=== PATIENT | female | born 1980 | race Caucasian/White ===

== ENCOUNTER 2016-04-15 19:57 | Emergency (ER) | payer BC, OTHER ==
[2016-04-15] MEDS ORDERED: HYDROmorphone HCL 1 MG/ML DISP.SYRIN IV ONE ×5 (20:12→22:58)
[2016-04-15] MEDS ORDERED: ONDANSETRON HCL/PF 2 MG/ML VIAL ONE ×2 (20:12→21:24)
[2016-04-15] MEDS ORDERED: HYDROmorphone HCL 1 MG/ML DISP.SYRIN ONE ×3 (20:12→22:57)
[2016-04-15] MEDS ORDERED: NORMAL SALINE 1,000 ML IV ONE (20:12)
[2016-04-15] MEDS ORDERED: ONDANSETRON HCL/PF 2 MG/ML VIAL IV ONE ×2 (20:12→21:25)
[2016-04-15 20:28] LABS: Hematocrit 41.2 % (37.0-47.0); Hemoglobin 14.1 gm/dL (12.5-16.0); Mean Corpuscular Hemoglobin 30.1 pg (27-31); Mean Corpuscular Hgb Conc 34.2 g/dl (32-36); Mean Platelet Volume 9.3 fl (6.0-9.5); Neutrophil # 3.4 K/mm3 (1.3-6.0); Neutrophil % 52.1 % (42-75.0); Platelet Count 278 K/mm3 (150-450); Red Blood Count 4.68 M/mm3 (4.2-5.4); Red Cell Distribution Width 12.3 % (11.5-14.0); White Blood Count 6.6 K/mm3 (4.0-10.5)
--- NOTE | 2016-04-15 20:34 | ERNOTE ---
Abdominal HPI - Narrative Date of Service: 04/15/16 - General Chief Complaint: Abdominal Pain Time Seen by Provider: 04/15/16 20:08 Source: patient - Immun/Allergies/Home Medications Immunizatons: IMMUNIZATION HX Immunizations Up to Date Yes History of Influenza Vaccine Yes Hx Pneumococcal Vaccination Yes Allergies/Adverse Reactions: Allergies No Known Allergies Allergy (Unverified 12/07/13 21:30) Home Medications: HOME MEDICATIONS Insulin Lispro [Humalog] unit SQ 12/07/13 [Last Taken Unknown] Levothyroxine Sodium [Synthroid] 250 mcg PO DAILY 12/07/13 [Last Taken Unknown] Medroxyprogesterone Acetate [Depo-Provera Contraceptive] 150 mg IM 12/07/13 [ Last Taken Unknown] Metoclopramide HCl [Reglan] 10 mg PO QID 12/07/13 [Last Taken Unknown] Simethicone [Mylicon Drops] 80 mg PO QID PRN 12/07/13 [Last Taken Unknown] - History of Present Illness Narrative: Patient is a type I diabetic with had severe generalized abdominal pain since 1300 today. Pt has also had nausea since the same time. She reports "not feeling well" since last pm. She denies diarrhea but admits to vomiting. she took Reglan. She has a history of Gastroparesis and has had multiple belly surgeries. She denies fevers or chills Review of Systems - Review of Systems Constitutional: Present: See HPI EYE: Present: no symptoms reported ENT: Present: no symptoms reported Respiratory: Present: no symptoms reported Cardiology: Present: no symptoms reported Gastrointestinal/Abdominal: Present: See HPI Genitourinary: Present: no symptoms reported Neurological: Present: no symptoms reported - Patient's Past Medical History Patient History - Medical: Diabetes Type 2 Insulin Dependent, Hypothyroidism Patient History - Cardiac/Respiratory: Asthma Patient History - Cancer: No Hx of Cancer Patient History - Surgical Procedures: T & A Patient History - Other: None - Social History Living Situations: home Abuse History: No History of abuse Psych History: No pertinent hx Smoking Status: Never smoker Have you smoked in the past 12 months: No Do you dip or chew tobacco: No Alcohol Use: none Drug Use: none - Immunizations Immunizations Up to Date: Yes Hx Pneumococcal Vaccination: Yes History of Influenza Vaccine: Yes Physical Exam - Physical Exam General Appearance: Present: wd/wn, alert, no apparent distress, other - pt appears tired. Ears, Nose, Throat: Present: normal ENT inspection Neck: Present: normal inspection, nontender, supple Respiratory: Present: no respiratory distress, normal breath sounds, no accessory muscle use, chest nontender Cardiovascular/Chest: Present: regular rate, rhythm, no murmur, normal peripheral pulses Gastrointestinal/Abdominal: Present: normal bowel sounds, soft, other - diffuse abd tenderness all over but NOT an acute abdomen Extremity Exam: Present: normal inspection, non-tender Neurological Exam: Present: alert, oriented, normal mood/affect, no motor/ sensory deficits Skin Exam: Present: normal color, warm/dry ED Progress - Results and Orders Patient's Lab Results:: I have reviewed the patient's lab results. - Vital Signs Patient's Vital Signs:: I have reviewed the patient's vital signs. Vital Signs: Vital Signs 04/15/16 20:00 Temperature 37 C Pulse Rate 96 Respiratory 22 H Rate Blood Pressure 169/85 O2 Sat by Pulse 96 Oximetry - Progress/Reassessment Chief Complaint: Abdominal Pain Plan - Plan Plan: Patient's CT of abd and pelvis reveals findings consistent with SBO. Dr. Hirsch, our surgeon was consulted regarding this case and he graciously agreed to come in and see and evaluate the patient. An NG tube was inserted to intermittent suction. After Dr. Mills's consult it was decided by the patient AND Dr. Mills that it would be in the patient's best interest to be transferred to the facility at which she had her multiple abdominal surgeries in [facility] Departure - Departure Clinical Impression: Small bowel obstruction Disposition: Other health care facility Condition: Good Referrals: Clarissa Rowley ARNP [Primary Care Provider] -
[2016-04-15] MEDS ORDERED: FAMOTIDINE 10 MG/ML VIAL IV ONE ×2 (20:39)
[2016-04-15 20:44] LABS: Albumin * 3.8 gm/dl (3.4-5.0); Anion Gap 10.4 mmol/L (6.8-13.8); BUN/Creatinine Ratio 12.7 (9.0-21.6); Bilirubin, Total 1.3 mg/dL (0.0-1.1); Ca. Corrected For Albumin 9.1 mg/dL (8.4-10.2); Calcium * 9.3 mg/dL (7.9-10.9); Carbon Dioxide 28.2 mmol/L (24-32.6); Potassium 3.6 mmol/L (3.4-4.6)
[2016-04-15] MEDS ORDERED: DIATRIZOATE MEGLU/DIATRIZO SOD 30 ML BTL ONE (20:46)
[2016-04-15] MEDS ORDERED: DIATRIZOATE MEGLU/DIATRIZO SOD 30 ML BTL PO ONE (20:47)
--- OUTSIDE RECORDS SUMMARY | 2016-04-15 20:57 | XMS REPORT | Continuity of Care Document ---
:1980 Author Organization [facility] ([facility]) Address [address] [place] [address] Phone [phone] Care Team Providers Name Role Phone [facility] Provider [phone] Source Comments This disclosure is being made pursuant to the Care Everywhere program, applicable federal and state laws, and may not contain all informaitonavailable regarding this patient.[facility] ([facility]) Active Allergies and Adverse Reactions No Known Allergies Current Medications Prescription Sig. Disp. Refills Start End Date Status Date levothyroxine Take 250 mcg by Active (SYNTHROID) 200 mcg mouth daily. tablet metoclopramide (REGLAN) take 10 mg by mouth Active 10 mg tablet 4 times daily. MULTIVITAMINS take 1 Tab by mouth Active (MULTI-VITAMIN PO) daily. PROchlorPERAZINE take 10 mg by mouth Active (COMPAZINE) 10 mg tablet as needed. Cyclobenzaprine 15 mg take 15 mg by mouth Active Cp24 2 times daily as needed. fluticasone (FLONASE) 50 use 2 Sprays into 1 Bottle 11 Active mcg/Actuation nasal each nostril daily. 0 spray Indications: Chronic Non-Allergic Rhinitis albuterol (VENTOLIN HFA) Use 2 Puffs by 1 Inhaler 3 Active 90 mcg/Actuation inhaler inhalation every 6 0 hours as needed. Indications: Bronchospastic Pulmonary Disease CHOLECALCIFEROL, VITAMIN Take by mouth Active D3, (VITAMIN D3 PO) daily. nystatin-triamcinolone Apply topically BID 30 g 2 Active 100,000-0.1 unit/gram-% as needed 3 ointment Indications: CUTANEOUS CANDIDIASIS insulin aspart (NovoLOG) Inject Active 100 unit/mL injection subcutaneously 3 vial times daily before meals. medroxyPROGESTERone Inject 1 mL (150 mg 1 Syringe 4 Active (DEPO-PROVERA) 150 mg/mL total) 6 injection syringe intramuscularly once. 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 Co-testing due Other constipation 05/02/2007 Dysplasia of cervix, unspecified 03/23/2007 Routine gynecological examination 10/13/2006 Abnormal glandular Papanicolaou smear of cervix 07/28/2006 Overview: [facility] 2003 STACY III Type I (juvenile type) diabetes mellitus without mention of complication, not stated as uncontrolled Most Recent Encounters Date Type Specialty Providers Description 03/23/2016 Office Visit [facility] Yanci Vega ARNP Dx: Breast density (Primary Dx) 03/15/2016 Office Visit [facility] Yanci Vega ARNP Subj: Upcoming Appt Reminder 03/09/2016 Office Visit [facility] Yanci Vega ARNP Chief Comp: Patient Reported Reason For Visit Immunizations Name Dates Previously Given Next Due Hepatitis A, unspecified 04/29/2005 Influenza 12/17/2004,12/07/2001 Influenza, quadrivalent PF 11/26/2014,11/17/2013 Influenza, unspecified 10/24/2015,12/07/2008 MMR 02/28/1996 Novel Inluenza H1N1, unspecified 12/07/2008 Pneumococcal, unspecified 02/06/2005 Social History Tobacco Use Types Packs/Day Years Used Date Former Smoker Cigarettes 2.5 15 Smokeless Tobacco: Never Used Tobacco Cessation:Counseling Given: Yes Comments: Alcohol Use Drinks/Week oz/Week Comments Yes 4 Glasses of wine Last Filed Vital Signs Vital Sign Reading Time Taken Blood Pressure 138/79 03/23/2016 1:48 PM [facility] Pulse 86 03/23/2016 1:48 PM [facility] Temperature 36.6 C (97.9 F) 03/23/2016 1:48 PM [facility] Respiratory Rate 18 12/03/2015 9:53 AM CDT Height 1.88 m (6' 2") 03/23/2016 1:48 PM [facility] Weight 136.2 kg (300 lb 4.3 oz) 03/23/2016 1:48 PM [facility] Body Mass Index 38.54 03/23/2016 1:48 PM [facility] Oxygen Saturation - - Plan of Care Date Type Specialty Providers Description 11/07/2016 Appointment Gynecology [place], Rome Anderson MD [address] [place] [address] [phone] (Fax) Chief Comp: Patient Chiqui Dwyer DANYA Bardales [address] [place] [address] [phone] (Fax) Reported Reason For Visit Health Maintenance Due Date Last Done Comments Hepatitis B Vaccine ( - 1980 Primary Series) Tdap Vaccine 1989 Td Vaccine 01/19/1996 Pneumococcal Vaccine (1997 - PPSV23) DIABETIC: Microalbumin 02/12/2004 02/11/2003 DIABETIC: Cholesterol 03/14/2005 03/14/2004, 02/11/2003 Diabetic: Hdl 03/14/2005 03/14/2004, 02/11/2003 Diabetic: Ldl 03/14/2005 03/14/2004, 03/14/2004, 02/11/2003 DIABETIC: Triglycerides 03/14/2005 03/14/2004, 02/11/2003 DIABETIC: Hemoglobin A1C 11/08/2007 05/09/2007, Additional history exists 09/16/2003, 06/22/2003 DIABETIC: Foot Exam 07/20/2010 DIABETIC: Retinal Eye Exam 07/20/2010 Cervical Cancer Screening 10/25/2018 10/26/2015, Additional history exists 03/14/2011, 11/26/2009 MMR Vaccine Completed 02/28/1996 Influenza Vaccine: Seasonal Completed 10/24/2015, Additional history exists 11/26/2014, 11/17/2013 Results from Last 3 Months Not on file
--- OUTSIDE RECORDS SUMMARY | 2016-04-15 20:57 | XMS REPORT | Continuity of Care Document ---
:1980 Author Organization [facility] [employer] [place] [address] Care Team Providers Name Role Phone Kemi Bird Yumiko Primary Care Provider [phone] Source Comments This disclosure is being made pursuant to the [place] program and maynot contain all information available regarding this patient.[employer] Active Allergies and Adverse Reactions No Known Allergies Current Medications Be aware that medications may not be up to date as of this document. Alwaysverify current medications with the patient. Prescription Sig. Disp. Refills Start Date End Date Status albuterol (PROAIR HFA) 108 Inhale into 05/20/2014 Active (90 BASE) MCG/ACT inhaler the lungs. levothyroxine (SYNTHROID, Take 200 mcg 05/08/2013 Active LEVOTHROID) 200 MCG tablet by mouth. Insulin Pump Accessories Take by 05/08/2013 Active MISC mouth. Multiple Vitamins-Minerals Take by 05/08/2013 Active (PX MENS MULTIVITAMINS) mouth. TABS prochlorperazine Take 10 mg by 05/08/2013 Active (COMPAZINE) 10 MG tablet mouth. insulin lispro (HUMALOG) INJECT 80-90 07/23/2014 Active 100 UNIT/ML injection - UNIIS INTO THE vial SKIN DAILY THROUGH INSULIN PUMP DIRECTED Insulin Disposable Pump Change 09/22/2011 Active (OMNIPOD) MISC Omnipods every 3 days. metoclopramide (REGLAN) 10 Take 10 mg by 09/30/2014 Active MG tablet mouth. glucagon (GLUCAGON 1 mg. 09/30/2014 Active EMERGENCY) 1 MG injection vitamin D, Take by Active cholecalciferol, mouth. (CHOLECALCIFEROL) 400 UNITS tablet glucose blood (FREESTYLE TEST 8 TIMES 09/30/2014 Active TEST STRIPS) test strip DAILY ondansetron (ZOFRAN-ODT) 4 Take 1 tablet 15 tablet 0 03/29/2015 Active MG disintegrating tablet by mouth every 8 (eight) hours as needed for Nausea. glucose blood test strip TEST 8 TIMES 03/11/2015 Active DAILY levothyroxine (SYNTHROID, Take 50 mcg by Active LEVOTHROID) 50 MCG tablet mouth every morning. medroxyPROGESTERone Inject 150 mg Active (DEPO-PROVERA) 150 MG/ML into the injection muscle every 3 (three) months. citalopram (CELEXA) 20 MG TAKE ONE 30 tablet 0 09/01/2015 Active tablet TABLET BY MOUTH EVERY DAY citalopram (CELEXA) 20 MG TAKE ONE 30 tablet 0 09/21/2015 Active tablet TABLET BY MOUTH EVERY DAY Hospital, Clinic, or Other Ordered Dose Route Frequency Start Date End Date Status Facility Administered Medication medroxyPROGESTERone 150mg IM Q90 Days 08/01/2015 01/22/2017 Active (DEPO-PROVERA) injection Active Problems Problem Noted Date Adjustment disorder with depressed mood 06/01/2015 Type I (juvenile type) diabetes mellitus without mention of complication, uncontrolled Overview: Overview: Celiac disease 11/12/2013 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 Excessive or frequent menstruation 10/16/2013 Overview: Identified By: Kemi Bird Body mass index (BMI) of 36.0-36.9 in adult 07/13/2013 Personal history of hyperthyroidism 07/13/2013 RLS (restless legs syndrome) 07/13/2013 Gastroparesis 05/17/2010 Overview: Overview: Depressive disorder 07/27/2007 Overview: Overview: Postablative hypothyroidism 03/19/2004 Overview: Overview: Hyperlipidemia 05/08/2000 Overview: Overview: Resolved Problems Problem Noted Date Resolved Date Contraceptive management 10/16/2013 06/01/2015 Overview: Identified By: Kemi Bird Type 1 diabetes mellitus without complication (HCC) 07/13/2013 06/01/2015 Hypothyroidism 05/08/2013 06/01/2015 Overview: MIREILLE BOJORQUEZ MGT Identified By: Kemi Bird Type I diabetes mellitus (HCC) 05/08/2013 06/01/2015 Overview: Mireille BOJORQUEZ managing Identified By: Kemi Bird Most Recent Encounters Date Type Specialty Providers Description 01/21/2016 Data Import Immunizations Name Dates Previously Given Next Due INFLUENZA, INACTIVATED, QUADRIVALENT, 3 YEARS AND 11/26/2014 older, single dose syringe/vial Social History Tobacco Use Types Packs/Day Years Used Date Former Smoker Alcohol Use Drinks/Week oz/Week Comments Yes occassionally Last Filed Vital Signs Vital Sign Reading Time Taken Blood Pressure 105/74 06/01/2015 9:06 AM CDT Pulse 82 06/01/2015 9:06 AM CDT Temperature 36.9 C (98.5 F) 06/01/2015 9:06 AM CDT Respiratory Rate 16 06/01/2015 9:06 AM CDT Height 1.88 m (6' 2") 06/01/2015 9:06 AM CDT Weight 126.554 kg (279 lb) 06/01/2015 9:06 AM CDT Body Mass Index 35.81 06/01/2015 9:06 AM CDT Oxygen Saturation 98% 03/29/2015 5:00 PM [employer] [employer]PER[employer] Plan of Care Health Maintenance Due Date Last Done Comments Lab-Lipids 1980 LAB-HgA1C 1983 Eye (Ophthalmology) Exam 01/19/1988 Foot Exam 01/19/1988 Lab-Urine Microalbumin 01/19/1988 Pneumococcal Medium Risk 19-64 yo (1 of 1 - PPSV23) 1997 Tetanus/Pertussis (1 - Tdap) 1997 Pap Smear 1999 Influenza Immunization (#1) 2015 11/26/2014 Results from Last 3 Months Not on file
--- OUTSIDE RECORDS SUMMARY | 2016-04-15 20:57 | XMS REPORT | CCD ---
:1980 Author Name MEGGAN MOHAN Address [address] Unavailable [place], [place] [id number] Care Team Providers Name Role Phone LUPE THOMPSON MD Attending Physician Unavailable LUPE THOMPSON MD Er Physician 1 Unavailable Vital Signs Unknown or Not Available. Allergies Allergy Code Allergy Type Reaction Status No Known Drug Allergies 0 No known drug allergies Active Procedures Procedure Code Procedure Type Date C DIFF TOXIN PCR [id number] SNOMED CT 03/29/2015 COMP METABOLIC PANEL 256571017 SNOMED CT 03/29/2015 History of Immunizations Unknown or Not Available. Problems Unknown or Not Available. Results COMP METABOLIC PANEL - Collect Date/Time: 03/29/2015 10:08 Test Name Code Test Result Test Units Test Ref Range GLUCOSE 2345-7 315 mg/dL L=74 H=106 BUN 3094-0 16 mg/dL L=6 H=20 CREATININE 2160-0 1.0 mg/dL L=0.6 H=1.1 SODIUM 2951-2 138 mmol/L L=136 H=145 POTASSIUM 2823-3 4.2 mmol/l L=3.5 H=5.1 CHLORIDE 2075-0 103 mmol/L L=98 H=107 CO2 2028-9 21.0 mmol/L L=21.0 H=32.0 CALCIUM 80645-8 8.7 mg/dL L=8.5 H=10.1 TOTAL BILI 1975-2 1.40 mg/dL L=0.20 H=1.00 ALKALINE PHOS 6768-6 101 U/L L=46 H=116 AST(SGOT) 98948-6 22 U/L L=15 H=37 ALT(SGPT) 1743-4 18 U/L L=12 H=78 TOTAL PROTEIN 2885-2 6.5 g/dL L=6.4 H=8.2 ALBUMIN 37527-9 3.5 g/dL L=3.4 H=5.0 GLOBULIN 04582-0 3.0 L=2.6 H=3.8 A/G RATIO 1759-0 1.2 L=1.1 H=2.2 LACTIC ACID - Collect Date/Time: 03/29/2015 10:08 Test Name Code Test Result Test Units Test Ref Range LACTIC ACID 68213-3 0.90 mmol/L L=0.90 H=1.70 CBC PER PROTOCOL - Collect Date/Time: 03/29/2015 10:08 Test Name Code Test Result Test Units Test Ref Range WBC 6690-2 10.5 x10^3 L=3.5 H=10.5 RBC 789-8 5.1 x10^6 L=3.9 H=5.0 HEMOGLOBIN 718-7 15.8 g/dL L=12.0 H=15.5 HEMATOCRIT 4544-3 44.8 % L=34.9 H=44.5 MCV 787-2 87.3 fL L=81.6 H=98.3 MCH 785-6 30.8 pg L=25.0 H=35.0 MCHC 786-4 35.3 g/dL L=31.0 H=37.0 PLATELETS 777-3 269 x10^3 L=150 H=450 %NEUTROPHIL 770-8 90.5 % L=27.0 H=75.0 %LYMPHOCYTE 736-9 4.2 % L=26.0 H=54.0 %MONOCYTES 5905-5 4.2 % L=3.0 H=7.0 %EOSINOPHILS 713-8 1.0 % L=1.0 H=3.0 %BASOPHILS 706-2 0.1 % L=0.0 H=0.7 #NEUTROPHIL 751-8 9.5 x10^3 L=1.5 H=7.0 #LYMPHOCYTE 731-0 0.4 x10^3 L=1.0 H=3.7 #MONOCYTES 742-7 0.4 x10^3 #EOSINOPHILS 711-2 0.1 x10^3 #BASOPHILS 704-7 0.0 x10^3 SEGS 86 % L=60 H=75 BANDS 764-1 3 % L=0 H=5 LYMPHOCYTES 3 % L=20 H=51 MONO 7 % L=0 H=3 EOSINOPHILS 1 % L=0 H=4 MANUAL DIFF SEE BELOW N/A RBC MORPH NORMAL N/A PLT APPEAR NORMAL N/A C DIFF TOXIN PCR - Collect Date/Time: 03/29/2015 10:14 Test Name Code Test Result Test Units Test Ref Range C DIFF TOXIN PCR 21504-3 NEGATIVE N/A NORMAL: NEGATIVE Active Medications Unknown or Not Available. Medications Administered During Visit Unknown or Not Available. Encounters Encounter Diagnosis Diagnosis Code Start Date Nausea with vomiting, unspecified R112 03/29/2015 Social History Smoking Status Code Start Date End Date Never smoker [id number] Patient Decision Aids Unknown or Not Available. Discharge Instructions You were admitted to [facility] on 03/29/2015 with a principal diagnosis of Nausea with vomiting, unspecified. You were discharged from [facility] on 03/29/2015. Should you have any questions prior to discharge, please contact a member of your healthcare team. If you have left the hospital and have any questions, please contact your primary care physician. Chief Complaint and Reason For Visit Unknown or Not Available. Function Status Unknown or Not Available. Plan of Care Unknown or Not Available. Referral/Transition of Care Unknown or Not Available.
--- OUTSIDE RECORDS SUMMARY | 2016-04-15 20:57 | XMS REPORT | CCD ---
:1980 Author Name MEGHANN SUTTON Address [address] Unavailable [place], [place] [id number] Care Team Providers Name Role Phone FELIBERTO CAMPUZANO DO Attending Physician Unavailable FELIBERTO CAMPUZANO DO Er Physician 1 Unavailable Vital Signs Unknown or Not Available. Allergies Allergy Code Allergy Type Reaction Status No Known Drug Allergies 0 No known drug allergies Active Procedures Procedure Code Procedure Type Date URINE TEST [id number] SNOMED CT 07/11/2014 History of Immunizations Unknown or Not Available. Problems Unknown or Not Available. Results URINE TEST - Collect Date/Time: 07/11/2014 22:11 Test Name Code Test Result Test Units Test Ref Range PREG TEST 2106-3 NEGATIVE N/A NORMAL: NEGATIVE Active Medications Unknown or Not Available. Medications Administered During Visit Unknown or Not Available. Encounters Encounter Diagnosis Diagnosis Code Start Date FX METATARSAL-CLOSED 32565 07/11/2014 Social History Smoking Status Code Start Date End Date Never smoker [id number] Patient Decision Aids Unknown or Not Available. Discharge Instructions You were admitted to [facility] on 07/11/2014 with a principal diagnosis of FX METATARSAL-CLOSED. You were discharged from [facility] on 07/11/2014. Should you have any questions prior to [...]
--- OUTSIDE RECORDS SUMMARY | 2016-04-15 20:57 | XMS REPORT | Summary of Care ---
:1980 Author Organization [facility] Address [address] [place] [address] Care Team Providers Name Role Phone Clarissa Rowley Primary Care Physician Encounter Date(s): 03/28/16 - 03/28/16 [facility] [address] [place] [address] [facility] Discharge Diagnosis: Acute URI Discharge Disposition: Discharged to Home or Self Care Attending Physician: DANYA Loya Referring Physician: DANYA Loya Vital Signs Most recent to oldest [Reference Range]: 1 Temperature Oral [35.8-37.3 DegC] 36.9 DegC (03/28/16 2:50 PM) Peripheral Pulse Rate [60-100 bpm] 98 bpm (03/28/16 2:50 PM) Respiratory Rate [12-20 br/min] 12 br/min (03/28/16 2:50 PM) SpO2 [90-100 %] 98 % (03/28/16 2:50 PM) SpO2 Location Left hand (03/28/16 2:50 PM) Blood Pressure [90-130/60-90 mmHg] 120/80mmHg (03/28/16 2:50 PM) Mean Arterial Pressure, Cuff 93 mmHg (03/28/16 2:50 PM) Most recent to oldest [Reference Range]: 1 Height/Length Measured 188 cm (03/28/16 2:50 PM) Weight Dosing 136.50 kg1 (03/28/16 2:52 PM) Weight Measured 136.5 kg (03/28/16 2:50 PM) BSA Measured 2.59 m2 (03/28/16 2:50 PM) Body Mass Index Measured 38.62 kg/m2 (03/28/16 2:50 PM) 1Result Comment: This result was because the dosing weight was either not entered or it is>30 days old. This result is based off: Weight Measured March 28, 2016 14:50:00 CHEMICAL TESTER by Lesley Rodriguez LPN Problem List No data available for this section Allergies, Adverse Reactions, Alerts No Known Medication Allergies Medications albuterol 90 mcg/inh inhalation aerosol puff(s), Inhale, QID, [facility], 0 Refill(s), Start Date: 03/28/16 15:36:00 CHEMICAL TESTER Special Instructions: [facility] Start Date: 03/28/16 Status: OrderedCompazine [facility], 0 Refill(s), Start Date: 03/28/16 15:33:00 CHEMICAL TESTER Special Instructions: [facility] Start Date: 03/28/16 Status: OrderedDepo-Provera Contraceptive 150 mg/mL intramuscular suspension 1 mL, IM, q3mo, per [facility], # 1 mL, 0 Refill(s), Start Date: 03/28/16 15:32:00 CHEMICAL TESTER Special Instructions: per [facility] Start Date: 03/28/16 Status: OrderedDiflucan 150 mg oral tablet 1 tab(s), Oral, ONETIME, # 1 tab(s), 0 Refill(s), Start Date: 03/28/16 15:33:00 CHEMICAL TESTER, Pharmacy: [place], [place] Start Date: 03/28/16 Status: Orderedfluticasone 50 mcg/inh nasal spray spray(s), Nasal, Daily, [facility], 0 Refill(s), Start Date: 03/28/16 15:36: 00 CHEMICAL TESTER Special Instructions: [facility] Start Date: 03/28/16 Status: OrderedHumaLOG Subcutaneous, [facility], 0 Refill(s), Start Date: 03/28/16 15:35:00 CHEMICAL TESTER Special Instructions: [facility] Start Date: 03/28/16 Status: Orderedmultivitamin 1 tab(s), Oral, Daily, 0 Refill(s), Start Date: 03/28/16 15:35:00 CHEMICAL TESTER Start Date: 03/28/16 Status: OrderedNovoLOG Subcutaneous, TIDAC, per [facility], 0 Refill(s), Start Date: 03/28/16 15:34:00 CHEMICAL TESTER Special Instructions: [facility] Start Date: 03/28/16 Status: OrderedReglan 10 mg oral tablet tab(s), Oral, QIDACHS, PRN dyspepsia, per [facility], 0 Refill(s), Start Date: 15:33:00 CHEMICAL TESTER Special Instructions: [facility] Start Date: 03/28/16 Status: OrderedSynthroid 250 mcg, Oral, Daily, [facility], 0 Refill(s), Start Date: 03/28/16 15:32:00 CHEMICAL TESTER Special Instructions: [facility] Start Date: 03/28/16 Status: OrderedZithromax Z-Kahlil 250 mg oral tablet 1 packet(s), Oral, Per Package Label, as directed on package labeling, # 6 tab(s ), 0 Refill(s), Start Date: 03/28/16 15:33:00 CHEMICAL TESTER, Pharmacy: [place], [place] Special Instructions: as directed on package labeling Start Date: 03/28/16 Stop Date: 04/02/16 Status: Ordered Results Patient Viewable Results Most recent to oldest [Reference Range]: 1 Strep A Nucleic Acid - FP [Negative] Negative (03/28/16 3:10 PM) Immunizations No data available for this section Procedures No data available for this section Social History No data available for this section Assessment and Plan No data available for this section
[2016-04-15 22:09] LABS: Urine Appearance Slightly Cloudy; Urine Bilirubin Negative (NEGATIVE); Urine Blood Negative /ul (NEGATIVE); Urine Color Yellow; Urine Ketone Negative (NEGATIVE); Urine Nitrite Negative (NEGATIVE); Urine Protein Negative (NEGATIVE); Urine RBC None Seen /hpf (0-5); Urine Urobilinogen Normal (NORMAL)
[2016-04-15 22:10] LABS: Urine Bacteria 2+
[2016-04-15] MEDS ORDERED: LIDOCAINE HCL 10 APPL CARTRIDGE ONE ×2 (22:59→23:35)
[2016-04-15] MEDS ORDERED: NORMAL SALINE 1,000 ML IV PRN (23:28)
[2016-04-15] MEDS ORDERED: COCAINE HCL 4 APPL BTL TP ONE ×2 (23:31→23:45)
[2016-04-15] MEDS ORDERED: OXYMETAZOLINE HCL 150 SPRAY BTL ONE (23:31)
[2016-04-15] MEDS ORDERED: LIDOCAINE HCL 10 APPL CARTRIDGE TP ONE ×2 (23:45)
--- NOTE | 2016-04-16 00:25 | CONS ---
HPI - General Narrative: 36 y/o female with 24 hr hx of change in bowel habits from 8 to 10 bowel movements per day to none. Prior hx of 5 laparotomies for care of aperistalsis of colon. 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 Began having abdominal pain 9 hrs ago and vomiting 4 hrs ago. Presently moderately uncomfortable Source: patient Exam Limitations: no limitations - History of Present Illness Initial Comments: See above HPI Timing/Duration: 24 hours Severity: severe Allergies/Adverse Reactions: Allergies No Known Allergies Allergy (Unverified 12/07/13 21:30) Home Medications: Home Medications Medication Instructions Recorded Last Taken Insulin Lispro [Humalog] unit SQ 12/07/13 Unknown Levothyroxine Sodium [Synthroid] 250 mcg PO DAILY 12/07/13 Unknown Medroxyprogesterone Acetate 150 mg IM 12/07/13 Unknown [Depo-Provera Contraceptive] Metoclopramide HCl [Reglan] 10 mg PO QID 12/07/13 Unknown Simethicone [Mylicon Drops] 80 mg PO QID PRN 12/07/13 Unknown - Patient's Past Medical History Patient History - Medical: Diabetes Type 2 Insulin Dependent, Hypothyroidism Patient History - Cardiac/Respiratory: Asthma Patient History - Cancer: No Hx of Cancer Patient History - Surgical Procedures: Colon Resection, T & A Additional Info: Multiple laparotomies. Patient History - Other: None - Social History Living Situations: home Abuse History: No History of abuse Psych History: No pertinent hx Smoking Status: Never smoker Have you smoked in the past 12 months: No Do you dip or chew tobacco: No Alcohol Use: none Drug Use: none - Immunizations Immunizations Up to Date: Yes Hx Pneumococcal Vaccination: Yes History of Influenza Vaccine: Yes Procedures MASTOTOMY (09/21/99) Medications - Medications Current Medications: Current Medications Sodium Chloride (Sodium Chloride 0.9%) 1,000 mls @ 250 mls/hr IV .Q4H PRN PRN Reason: HYDRATION Stop: 05/15/16 23:29 Last Admin: 04/15/16 23:29 Dose: 250 mls/hr Physical Examination - Exam Narrative: Well nourished moderately dehydrated female in acute distress. Abdomen moderately obese Nontender to palpation. No bowel sounds Vital Signs: Vital Signs - Last Taken Temp 37 C 04/15/16 20:00 Pulse 103 H 04/15/16 23:44 Resp 18 04/15/16 23:44 BP 168/84 04/15/16 23:44 Pulse Ox 98 04/15/16 23:44 O2 Oxygen Delivery Method Room Air Constitutional: Present: Alert, Oriented x3, Cooperative, Well developed, Well nourished, Moderate distress ENT Exam: Present: normal ENT inspection Neck: Present: non-tender, full range of motion Breasts: Present: Exam deferred Respiratory: Present: normal breath sounds Cardiovascular/Chest: Present: normal peripheral pulses, regular rate, rhythm Abdomen: Present: nontender, no bowel sounds /Rectal: Present: Exam deferred Extremity: Present: normal range of motion, non-tender - Results and Findings: Narrative: Ct shows small bowel obstruction with no evidence of vascular compromise to bowel. Lab/Microbiology results last 24 hrs: Abnormal/Pending Laboratory Last 24 HRS 04/15/16 04/15/16 21:55 20:20 Plasma Sodium 143 H Random Glucose 211 H Total Bilirubin 1.3 H ALT 16 L Urine Glucose (UA) 500 H Urine WBC 5-10 H Urine Bacteria 2+ H - Assessments/Findings (1) Small bowel obstruction Diagnosis(s): Patient needs ng suction and iv rehydration over the next 12 hrs. I have discussed her case with the passenger relations representative surgeon at [facility] who is accepting her in transfer. Problem: Acute
[2016-04-16] MEDS ORDERED: ONDANSETRON HCL/PF 2 MG/ML VIAL IV ONE (01:15)
[2016-04-16] MEDS ORDERED: ONDANSETRON HCL/PF 2 MG/ML VIAL ONE (01:16)
[2016-04-16] MEDS ORDERED: HYDROmorphone HCL 1 MG/ML DISP.SYRIN IV ONE (01:36)
[2016-04-16] MEDS ORDERED: HYDROmorphone HCL 1 MG/ML DISP.SYRIN ONE (01:37)
[2016-04-16 01:55] VITALS: BP 143/82
[2016-04-16] MEDS ORDERED: METOCLOPRAMIDE HCL 5 MG/ML VIAL IV ONE (02:15)
[2016-04-16] MEDS ORDERED: METOCLOPRAMIDE HCL 5 MG/ML VIAL ONE (02:22)
== END 2016-04-16 02:30 | disposition short-term general hospital (02) ==
LOC: ER 19:57
DX: K56.69 Other intestinal obstruction (principal)

== ENCOUNTER 2016-06-01 07:09 | Day surgery (SDC) | payer OTHER ==
[~2016-06-01 07:09] MED LIST: RINGERS SOLUTION,LACTATED 1,000 ML IV PRN; ceFAZolin SODIUM 1 GM VIAL IV PRN
--- OUTSIDE RECORDS SUMMARY | 2016-06-01 07:12 | XMS REPORT | Continuity of Care Document ---
:1980 Author Organization [employer] [place] [address] Care Team Providers Name Role Phone Kemi Bird Yumiko Primary Care Provider [phone] Source Comments This disclosure is being made pursuant to the Protection Plus program and maynot contain all information available regarding this patient.[employer] Active Allergies and Adverse Reactions No Known [...] Recent Encounters Date Type Specialty Providers Description 05/05/2016 Data Import 04/19/2016 Scanned Document Family Medicine BejarKemi garcia ARNP Immunizations Name Dates Previously Given Next Due [...] CDT Oxygen Saturation 98% 03/29/2015 5:00 PM [employer] Plan of Care Health Maintenance Due Date Last Done Comments Lab-Lipids 1978 LAB-HgA1C 1983 Eye (Ophthalmology) Exam 01/19/1988 Foot Exam 01/19/1988 Lab-Urine Microalbumin 01/19/1988 Pneumococcal Medium Risk 19-64 yo (1 of 1 - PPSV23) 1997 Tetanus/Pertussis (1 - Tdap) 1997 Pap Smear 1999 Influenza Immunization (#1) 2015 11/26/2014 Results from Last 3 Months Not on file
--- OUTSIDE RECORDS SUMMARY | 2016-06-01 07:13 | XMS REPORT | Continuity of Care Document ---
:1980 Author Organization [facility] ([facility]) Address [address] [place] [address] Phone [phone] Care Team Providers Name Role Phone [facility] Provider [phone] Source Comments This disclosure is being made pursuant to the Care Everywhere program, applicable federal and state laws, and may not contain all informaitonavailable regarding this patient.[facility] ([facility]) Active Allergies and Adverse Reactions No [...] glandular Papanicolaou smear of cervix 07/28/2006 Overview: [facility] 2003 STACY III Type I (juvenile type) diabetes mellitus without mention of complication, not stated as uncontrolled Most Recent Encounters Date Type Specialty Providers Description 03/23/2016 Office Visit [facility] Yanci Vega ARNP Dx: Breast density (Primary Dx) 03/15/2016 Office Visit [facility] Yanci Vega ARNP Subj: Upcoming Appt Reminder 03/09/2016 Office Visit [facility] Yanci Vega ARNP Chief Comp: Patient Reported [...] Taken Blood Pressure 138/79 03/23/2016 1:48 PM [facility] SEWER Pulse 86 03/23/2016 1:48 PM [facility] Temperature 36.6 C (97.9 F) 03/23/2016 1:48 PM [facility] SEWER Respiratory Rate 18 12/03/2015 9:53 AM CDT Height 1.88 m (6' 2") 03/23/2016 1:48 PM [facility] SEWER Weight 136.2 kg (300 lb 4.3 oz) 03/23/2016 1:48 PM [facility] SEWER Body Mass Index 38.54 03/23/2016 1:48 PM [facility] SEWER Oxygen Saturation - - Plan of Care Date Type Specialty Providers Description 11/07/2016 Appointment Gynecology [place], Rome Anderson MD [address] [place] [address] [phone] (Fax) Chief Comp: Patient Chiqui Dwyer DANYA Bardaels [address] [place] [address] [phone] (Fax) Reported Reason For Visit Health Maintenance [...]
[2016-06-01] MEDS ORDERED: INSULIN REGULAR, HUMAN 100 UNITS/ML VIAL SC ONE (07:25)
[2016-06-01] MEDS ORDERED: BUPIVACAINE HCL 50 ML VIAL IJ ONE (08:00)
--- NOTE | 2016-06-01 09:18 | OR ---
Operative Report - Dictated Report Narrative: Date: 06/01/2016 Physician: Erasmo Ghotra M.D. Gifted Program Teacher: Ferny Brand PA-C Preoperative diagnosis: Right long Trigger finger Postoperative diagnosis: Right long Trigger finger Procedure: Right long finger A1 dania release Anesthesia: MAC Plus local Complications: None Estimated blood loss: Minimal Tourniquet time: 5 Minutes with forearm esmarch band Specimens: None Retained implants: None Drains: None Indications: Mrs. Blackwell Is a 36 year-old female who has been followed in my clinic with complaints of trigger finger. Physical exam as demonstrated triggering of the finger. Conservative measures have failed including but not limited to passage of time, activity modification, medications, and injections. The risks, benefits, and alternatives were discussed in clinic. The risks being bleeding, infection, nerve, tendon, blood vessel injury, persistent pain, wound competitions, need for additional procedures, and persistent symptoms. Consent was obtained in the clinic. Procedure: After marking the correct extremity in the preoperative holding area, a timeout was performed in the operating room. IV antibiotics consisting of Ancef were administered prior to the procedure. A forearm esmarch tourniquet was applied to the operative upper arm. The arm was exsanguinated and esmarch band was applied 0.5% Marcaine without epinephrine was infused into the projected incision site at the palmar flexion crease over the metacarpal phalangeal joint in line with the digit. Using loupe magnification, a transverse incision in the appropriate palmar flexion crease in line with the digit. Blunt dissection was carried down through the subcutaneous tissues using bipolar cautery for hemostasis. Care was taken to protect the digital nerves. Staying midline along the flexor tendon, the A1 dania was identified. A nancy was made in the proximal edge of the A1 dania and tenotomies were utilized in order to completely transect the A1 dania. Care was to stay midline and avoid transection of the A2 dania. Soft tissues overlying the flexor tendon proximal to the A1 dania were also released ensuring that there were no other compressive structures contributing to the triggering. The finger was placed through range of motion and demonstrated no additional catching. The tendons were visualized and mobilized out of the wound, and did not demonstrate any gross pathology or masses that required debridement. The tendons were noted to be intact. Once was felt that we had decompressed the flexor tendons as they passed under the A1 dania, the tourniquet was removed. Hemostasis was obtained with pressure and bipolar cautery. There was good return of color and capillary refill to the digit. Additional half percent Marcaine without epinephrine was infused into the skin edges. The wound was thoroughly irrigated. The skin was closed with interrupted 4-0 nylon. Sterile dressings consisting of Xeroform, 4 x 4, and Magdy were applied. All sponge, needle, blade, and instrument counts were correct prior to closing the wounds. The patient was awoken and transferred to the postanesthesia care unit in stable condition.
[2016-06-01 09:37] VITALS: BP 163/82
== END 2016-06-01 07:10 | disposition home or self-care (01) ==
LOC: AMB 07:09
PROVIDERS: ATTEND Orthopaedic Surgery
PROC: 0LN70ZZ Release Right Hand Tendon, Open Approach (ICD-10-PCS; principal; 2016-06-01 08:00)
DX: M65.331 Trigger finger, right middle finger (principal); E10.9 Type 1 diabetes mellitus without complications; J45.909 Unspecified asthma, uncomplicated; G40.909 Epilepsy, unspecified, not intractable, without status epilepticus; E55.9 Vitamin D deficiency, unspecified; Z87.891 Personal history of nicotine dependence; Z68.38 Body mass index [BMI] 38.0-38.9, adult

== ENCOUNTER 2016-11-18 23:22 | Emergency (ER) | payer OTHER ==
[2016-11-18 23:35] VITALS: BP 155/93
--- NOTE | 2016-11-19 00:19 | ERNOTE ---
Medical Problem HPI - General Chief Complaint: Diabetes Related Problem Time Seen by Provider: 11/18/16 23:37 Source: patient, RN notes reviewed Exam Limitations: no limitations - Immun/Allergies/Home Medications Immunizations: IMMUNIZATION HX Immunizations Up to Date Yes History of Influenza Vaccine No Hx Pneumococcal Vaccination Yes Allergies/Adverse Reactions: Allergies No Known Allergies Allergy (Verified 06/01/16 07:20) Home Medications: HOME MEDICATIONS Insulin Lispro [Humalog] 0 unit SQ DAILY 12/07/13 [Last Taken Unknown] Medroxyprogesterone Acetate [Depo-Provera Contraceptive] 150 mg IM Q90D [Last Taken Unknown] Metoclopramide HCl [Reglan] 10 mg PO ACHS 12/07/13 [Last Taken Unknown] Cholecalciferol (Vitamin D3) [Vitamin D] 2,000 unit PO DAILY 05/24/16 [Last Taken Unknown] Levothyroxine Sodium [Synthroid] 50 mcg PO DAILY 05/24/16 [Last Taken Unknown] Levothyroxine Sodium [Synthroid] 200 mcg PO DAILY 05/24/16 [Last Taken Unknown] Prochlorperazine Maleate [Compazine] 10 mg PO Q6H PRN 05/24/16 [Last Taken Unknown] metFORMIN HCL [Glucophage] 500 mg PO BIDWM 06/01/16 [Last Taken Unknown] oxyCODONE HCL/ACETAMINOPHEN [Percocet 5 MG/325 MG] 2 tab PO Q4H PRN #30 tablet 06/01/16 [Last Taken Unknown] - History of Present History Narrative: Patient is a type 1 diabetic, who uses an insulin pump and a glucose monitor. She was out on a date to a s0cket, upon leaving she realized that her insulin pump was making a lot of noise. She checked her pump and figured out her PDM that tells the pump what to do was not working, therefore she wasn't getting any insulin at all. She contacted the company, they went through a lot of tests , but were unable to get the PDM to work. She does not have any long acting insulin on board, and is in need of some long acting insulin to take - her insulin pump only uses the very short acting insulin such as Novolog or Humalog. There is no 24 hour pharmacy for over [place], so she needs to take some tonight. Timing: constant, getting worse Severity: moderate Modifying Factors - (Improves): Present: movement Modifying Factors - (Worsens): Present: eating, immobilization Review of Systems - Review of Systems Constitutional: Absent: recent illness, fever, chills EYE: Present: no symptoms reported ENT: Absent: ear pain, sore throat Respiratory: Absent: shortness of breath, cough Cardiology: Absent: chest pain Gastrointestinal/Abdominal: Absent: nausea, vomiting, diarrhea, abdominal pain Genitourinary: Present: no symptoms reported Musculoskeletal: Absent: back pain, muscle pain, muscle stiffness, neck pain, joint pain Skin: Present: no symptoms reported Neurological: Present: no symptoms reported Endocrine: Present: no symptoms reported Hematologic/Lymphatic: Present: no symptoms reported Psych: Present: no symptoms reported - Patient's Past Medical History Patient History - Medical: Diabetes Type 2 Insulin Dependent, Hypothyroidism, UTI'S, Other Patient History - Cardiac/Respiratory: Asthma Patient History - Cancer: No Hx of Cancer Patient History - Surgical Procedures: Cholecystectomy, Colon Resection, T & A, Orthopedic Patient History - Other: None LMP (females 10-50): unknown - Family History Mother Family History - Medical: Other Family History - Cardiac/Respiratory: No pertinent hx Family History - Cancer: No pertinent family hx Father Family History - Medical: No pertinent hx Family History - Cardiac/Respiratory: No pertinent hx Family History - Cancer: No pertinent family hx - Social History Living Situations: home Abuse History: No History of abuse Psych History: Hx of Depression Smoking Status: Former smoker Alcohol Use: occasionally Drug Use: none - Immunizations Immunizations Up to Date: Yes Hx Pneumococcal Vaccination: Yes History of Influenza Vaccine: No Physical Exam - Physical Exam General Appearance: Present: wd/wn, alert, no apparent distress, mild distress Head Exam: Present: normal inspection, no evidence of injury Eye Exam: Normal inspection: bilateral, PERRL: bilateral, EOMI: bilateral Ears, Nose, Throat: Present: normal ENT inspection, normal pharynx Neck: Present: normal inspection, nontender Respiratory: Present: no respiratory distress, normal breath sounds, no accessory muscle use, chest nontender, lungs clear Cardiovascular/Chest: Present: regular rate, rhythm, no murmur Gastrointestinal/Abdominal: Present: normal bowel sounds, nontender, nondistended, soft Back Exam: Present: normal inspection, normal range of motion Extremity Exam: Present: normal inspection, non-tender, normal range of motion, no edema Neurological Exam: Present: alert, oriented, normal mood/affect, no motor/ sensory deficits Skin Exam: Present: normal color, warm/dry ED Progress - Vital Signs Patient's Vital Signs:: I have reviewed the patient's vital signs. Vital Signs: Vital Signs 11/18/16 23:27 Temperature 37.3 C Pulse Rate 95 Respiratory 18 Rate Blood Pressure 155/93 O2 Sat by Pulse 99 Oximetry - Progress/Reassessment Chief Complaint: Diabetes Related Problem Progress Note-Subjective: 11/19/16 00:19 Levemir Insulin 14 units SC now Departure Clinical Impression: Acute hyperglycemia Insulin pump mechanical complication Qualifiers: Device type: other Mechanical complication type: mechanical breakdown Encounter type: initial encounter Qualified Code(s): T85.614A - Breakdown ( mechanical) of insulin pump, initial encounter - Departure Disposition: Home self-care Condition: Good Instructions: Hyperglycemia, [id number], Insulin Pumps Referrals: Denice Leonardo MD [Other] (Please call Monday)
[2016-11-19] MEDS ORDERED: INSULIN DETEMIR 100 UNITS/ML VIAL SC ONE (01:00)
== END 2016-11-19 01:35 | disposition home or self-care (01) ==
LOC: ER 23:22
DX: E10.65 Type 1 diabetes mellitus with hyperglycemia (principal); Z79.4 Long term (current) use of insulin; Z96.41 Presence of insulin pump (external) (internal); T85.614A Breakdown (mechanical) of insulin pump, initial encounter